=== PATIENT | male | born 1965 | race Caucasian/White ===

== ENCOUNTER 2020-04-18 16:20 | Inpatient (IN) | payer OTHER ==
[~2020-04-18] VITALS: Ht 180.3 cm; Wt 78.5 kg
[2020-04-18 16:26] VITALS: BP 148/94
[2020-04-18 17:44] LABS: ABSOLUTE NEUTROPHILS 6.9 thou/uL (1.4-8.2); BASOPHILS 1.3 % (0.0-2.0); EOSINOPHILS 1.7 % (0.0-3.0); HEMATOCRIT 44.5 % (42.0-52.0); HEMOGLOBIN 15.2 gm/dL (14.0-18.0); LYMPHOCYTES 18.7 % (24.0-44.0); MCHC 34.2 g/dL (28.0-37.0); MCV 84.7 fL (80.0-100.0); MONOCYTES 6.7 % (1.0-8.0); PLATELET COUNT 210 thou/uL (150-400); POLYS 71.6 % (36.0-66.0); RBC 5.25 mil/uL (4.50-6.00); RDW 13.1 % (10.5-14.5); WBC 9.7 thou/uL (4.0-11.0)
[2020-04-18 18:11] LABS: CALCIUM 8.9 mg/dL (8.5-10.1); CREATININE 1.2 mg/dL (0.7-1.3); POTASSIUM 4.1 mmol/L (3.5-5.1)
[2020-04-18 18:17] LABS: ALBUMIN 3.7 g/dL (3.4-5.0); TOTAL PROTEIN 7.8 g/dL (6.4-8.2)
[2020-04-18 20:28] VITALS: BP 150/93
[2020-04-18] MEDS ORDERED: KEFLEX500 M1 PO (20:43)
[2020-04-18 22:17] VITALS: BP 132/89
[2020-04-19] VITALS (9 sets, daily range): BP systolic 147–168; BP diastolic 91–102
--- NOTE | 2020-04-19 04:15 | NUR ---
PATIENT ARRIVED ON UNIT AT 2105 VIA W/C FROM ED ACCOMPANIED BY ED PERSONEL. PATIENT ALERT AND ORIENTED X4. PATIENT NOT A FALL RISK. L FORE FINGER HAS WOUND THAT IS RED AND DISCOLORED WITH A CENTER THAT IS DRAINING SEROUS FLUID. DRESSING CHANGED. C/O PAIN, MED GIVEN. SLEPT MOST OF NIGHT.
[2020-04-19 05:42] LABS: HEMATOCRIT 40.1 % (42.0-52.0); HEMOGLOBIN 13.6 gm/dL (14.0-18.0); MCH 28.8 pg (26.0-34.0); MCHC 33.8 g/dL (28.0-37.0); MCV 85.1 fL (80.0-100.0); RBC 4.72 mil/uL (4.50-6.00); WBC 7.1 thou/uL (4.0-11.0)
[2020-04-19 06:08] LABS: CALCIUM 8.6 mg/dL (8.5-10.1); CREATININE 1.3 mg/dL (0.7-1.3)
--- NOTE | 2020-04-19 11:57 | HC ---
[facility] [place] [address] CONSULTATION Name: JAXSON DOE Room #: 442- ADM IN M.R.#: [id number] Admission: 04/18/20 Attend Phys: Saundra Ang MD Discharge: Date of : 63 Report #: [id number] THIS REPORT FOR: cc: FAM - No family physician/PCP FAM - No family physician/PCP Brian Gardner MD ~ DATE OF SERVICE: 04/19/2020 CHIEF COMPLAINT: Left hand and index finger burn with cellulitis and superficial abscess. HISTORY OF PRESENT ILLNESS: This 54-year-old gentleman injured the left hand at work about 8 days ago. I believe he sustained a burn from a hot plastic material. This occurred on the dorsal radial aspect of the left index finger. Subsequently, he developed cellulitis. He apparently has had oral antibiotics and some outpatient wound care management. Despite this, the redness, warmth, swelling and pain have advanced. He therefore came to [facility] and was admitted for further evaluation. At the time of my evaluation, he is somewhat emotional and seems slightly confused. He denies any other areas of injury aside from the left hand. The left hand demonstrates an area of cellulitis with a central area of burn with subcutaneous fluid and purulent material. The digit seems to be well aligned and there is no evidence of fracture. In general, vascular status appears to be intact. The cellulitis extends from about the PIP joint, back to a point about 1 cm proximal to the MP joint. There is no evidence of flexor tenosynovitis. He has good extensor strength and there is no extension of fluid or swelling or redness out on to the dorsum of the hand. X-rays of the hand reveal no obvious bony abnormalities. There is some soft tissue irregularity, which could be consistent with eschar from his burn. IMPRESSION AND PLAN: I think this is primarily cellulitis, but there is some purulent debris and so probably some subcutaneous abscess along the dorsal radial aspect of the left index finger. He has already had oral antibiotics and topical care over the past week without clear benefit. Given this, I think at least a limited open debridement would be appropriate. Unfortunately, he has already had breakfast this morning. Given this, I am not certain what will be able to manage. He states he probably could tolerate a simple local anesthetic and I think this would be a very limited debridement. Given this, we will see [facility] [address] [place] [address] CONSULTATION Name: JAXSON DOE Room #: 442-P [facility] IN M.R.#: [id number] Admission: 04/18/20 Attend Phys: Saundra Ang MD Discharge: Date of : 63 Report #: [id number] if we get press ahead at some point today with a limited open debridement of the soft tissue abscess involving the left index finger. <ELECTRONICALLY SIGNED> By: Brian Gardner MD 04/19/20 1157 [id number] Brian Gardner MD /darci
--- NOTE | 2020-04-19 12:01 | NUR ---
LEFT AT APPROX 1000 FOR PRE SURGERY.
--- NOTE | 2020-04-19 13:08 | NUR ---
PATIENT BACK FROM SURGERY/ DEBRIDEMENT GIVEN PRN PAIN MED.
--- NOTE | 2020-04-20 05:12 | NUR ---
RECIEVED CARE OF THIS PATIENT AT 1900. PATIENT ALERT AND ORIENTED X4. UP AD JAYLENE. DRESSING ON L HAND INTACT. C/O PAIN X1, MED GIVEN. SLEPT MOST OF NIGHT.
[2020-04-20 05:36] LABS: GLYCOHEMOGLOBIN (HGB A1C) 11.6 % (4.8-5.6)
[2020-04-20 07:17] VITALS: BP 135/83
[2020-04-20 08:52] LABS: ALBUMIN 2.8 g/dL (3.4-5.0); CALCIUM 8.3 mg/dL (8.5-10.1); PHOSPHORUS 2.9 mg/dL (2.6-4.7); POTASSIUM 4.4 mmol/L (3.5-5.1)
--- NOTE | 2020-04-20 10:03 | O ---
[facility] [place] [address] OPERATIVE REPORT Name: JAXSON DOE Room #: 2- ADM IN M.R.#: [id number] Admission: 04/18/20 Attend Phys: Saundra Ang MD Discharge: Date of : 63 Report #: [id number] THIS REPORT FOR: cc: FAM - No family physician/PCP FAM - No family physician/PCP Brian Gardner MD ~ DATE OF SERVICE: 04/19/2020 PREOPERATIVE DIAGNOSES: Cellulitis and abscess, left index finger. POSTOPERATIVE DIAGNOSES: Cellulitis and abscess, left index finger. PROCEDURE: Irrigation and debridement, left index finger abscess. SURGEON: Brian Gardner M.D. INDICATIONS: This 54-year-old gentleman injured the left hand at work 8 days ago. He apparently had a hot plastic burn, which subsequently resulted in cellulitis and then a subcutaneous abscess. He has failed outpatient treatment and was admitted for more aggressive management. I have discussed with the patient that he probably does have some subcutaneous abscess, although there is no evidence of flexor tenosynovitis nor extensive extension into the dorsum of the hand. We have elected to go ahead with simple wound debridement. DESCRIPTION OF PROCEDURE: The patient was taken to the operating room where he was placed under limited IV sedation. The left wrist and hand were meticulously prepped and draped. Local anesthesia was established with injection of 0.25% Marcaine at the base of the index finger. The area of abscess was incised along the dorsal radial aspect. A small amount of purulent debris was evacuated. This was cultured and sent to the lab. The area was gently probed using scissors and a small hemostat. There was a subcutaneous abscess, but was rather limited in size. It did not extend quite back to the MP joint nor out to the PIP joint. It seemed to be superficial and did not seem to extend deep to the extensor tendon. This area was copiously irrigated and then very gently packed with a small amount of Nu Gauze material leaving the wound open for good drainage. A soft dressing was then applied. The patient was then awakened and returned to recovery room in good condition. <ELECTRONICALLY SIGNED> By: Brian Gardner MD 04/20/20 [id number] Brian Gardner MD /nt
[2020-04-20 15:48] VITALS: BP 144/76
[2020-04-20 19:13] VITALS: BP 149/78
--- NOTE | 2020-04-21 04:00 | NUR ---
PT IS PLEASANT AND COOPERATIVE. AFEBRILE. UP AD JAYLENE. VOIDING PER BATHROOM.LEFT HAND, INCLUDING FORE FINGER WRAPPED IN GAUZE.GOOD SENSATION, CIRCULATION AND MOVEMENT NOTED TO THE LEFT HAND. RFA INFLITRATED, HAND SWOLLEN-ELEVATED ON PILLOW-PT DENIES NEED FOR PAIN MEDS.CALL LIGHT WITHIN REACH.
[2020-04-21 04:10] VITALS: BP 161/90
[2020-04-21 07:30] VITALS: BP 136/87
--- NOTE | 2020-04-21 15:33 | NUR ---
PT ADMITTED RELATED TO INFECTION IN [facility]. CM REVIEWED CHART AND SPOKE WITH CARE TEAM. CM MET WITH PT OVER THE PHONE THIS DAY. PT APPEARED TO BE A&0 X4. CM ROLE INTRODUCED. PT INDICATED HE LIVES IN A HOUSE WITH HIS SPOUSE WITH A NUMBER OF STEPS TO ENTER AND INSIDE. PT INDICATED HE HAD BEEN INDEPDENENT WITH GAIT AND ADLS RN ADMISSIONS. PT INDICATED NO PCP. PT INDICATED HE PLANS TO RETURN HOME ONCE MEDICALLY STABLE. PT IS LISTED WORKMANS COMP. PT EXPRESSED THAT HE IS TO FOLLOW UP WITH PHYSICAIN THROUGH HIS EMPLOYER. CM TO FOLLOW INDICATED WITH DC PLANNING.PT HAD I&D 04/19 AND IS ON IV VANC AND ZOSYN.
[2020-04-21 17:00] VITALS: BP 121/92
[2020-04-21 18:56] VITALS: BP 145/82
--- NOTE | 2020-04-22 02:10 | NUR ---
ASSESSMENT COMPLETED. PT IS PLEASANT AND COOPERATIVE. DRSG INTACT TO LEFT FOREFINGER. PT DENIES ANY PAIN. PT JUST CONCERNED MORE ABOUT THE NEW DIABETES DIAGNOSIS.NEEDS ALOT OF EDUACTION. HE IS UP AD JAYLENE. AFEBRILE. VOIDING OK. CONTINUES ON IV FLUIDS AND ABTS.CALL LIGHT WITHIN REACH.
[2020-04-22 07:10] VITALS: BP 142/86
--- NOTE | 2020-04-22 08:07 | HC ---
[facility] [place] [address] CONSULTATION Name: DOEJAXSON Room #: 442- ADM IN M.R.#: [id number] Admission: 04/18/20 Attend Phys: Pablo Bai MD Discharge: Date of : 63 Report #: [id number] THIS REPORT FOR: cc: FAM - No family physician/PCP FAM - No family physician/PCP Iraj Najera MD ~ DATE OF SERVICE: 04/20/2020 WOUND CARE CONSULTATION NOTE REASON FOR CONSULTATION: Infected burn wound of left hand. HISTORY OF PRESENT ILLNESS: The patient is a 54-year-old gentleman who sustained a burn to his left hand with hot plastics at [employer] approximately 10 days ago. Area became more red, tender and swollen. He was admitted to the hospital with antibiotics. He was taken to the operating room yesterday by Dr. Brian Gardner, who incised and drained a soft tissue infection or abscess of the dorsum of the left hand at the metacarpophalangeal joint dorsally. Dr. Gardner states he wished the dressings removed and the packing removed today. The patient continues on IV antibiotics under the direction of Dr. Kvng Frias with IV piperacillin. The patient was noted to be hyperglycemic on admission and has clinically diabetic, now on metformin and insulin. Wound care is consulted to care for the hand wound. PAST MEDICAL HISTORY: Kidney stones, now diabetes. SOCIAL HISTORY: Denies alcohol or tobacco use. ALLERGIES: None. PHYSICAL EXAMINATION: GENERAL: Shows a well-appearing 54-year-old gentleman who appears younger than his stated age. VITAL SIGNS: Temperature 36.7, heart rate 71, blood pressure 135/83. HEENT: Mucous membranes moist. NECK: Supple. LUNGS: Respirations unlabored. EXTREMITIES: Reveals dressing on the left hand; bulky left hand dressing is removed. The patient has redness and swelling of the dorsum of his second digit at the metatarsophalangeal joint. There is a 5 x 5 mm incision and drainage site. An 8 inch long packing of quarter inch gauze is removed from this open wound. There is no draining purulence. Surrounding skin is red with some desquamation, swelling and redness indicative of cellulitis. Wound was redressed with Aquacel Ag and a bulky gauze dressing. Dr. Gardner does not want the wound repacked. [address] [address] CONSULTATION Name: DOEJAXSON Room #: 442-P [facility] IN M.R.#: [id number] Admission: 04/18/20 Attend Phys: Pablo Bai MD Discharge: Date of : 63 Report #: [id number] IMPRESSION: Infected burn wound, dorsum of left hand at the second finger metatarsophalangeal joint, postoperative day #1, incision and drainage; area still has significant erythema. Clinically, there is infection at the burn site. PLAN: The patient will continue on IV antibiotics, keep hand elevated. Wound care team will follow. Diabetes management. <ELECTRONICALLY SIGNED> By: Iraj Najera MD 04/22/20 [id number] Iraj Najera MD /nt
[2020-04-22] MEDS ORDERED: LANTUS SUBQ (13:34)
[2020-04-22] MEDS ORDERED: GLUCOPHAGE1000 MG PO (13:34)
[2020-04-22] MEDS ORDERED: TEST STRIPS1 EACH SUBQ (13:36)
[2020-04-22] MEDS ORDERED: FREESTYLE LANC1 EACH MISCELL (13:37)
[2020-04-22] MEDS ORDERED: KEFLEX500 M1 PO (13:38)
--- NOTE | 2020-04-22 14:52 | NUR ---
A/O, calm and coopetative. Patient got DM education fold, asked questions about how to check blood sugar, where to get the needles and how to figure out how many units of insulin he should get. The staff educated the patient about the hyperglycemia and hypoglycemia, the signs and sympotoms, the complication, the situations that might cause hypoglycemia or hyperglycemia. Patient agreed to study about DM and DM care from the website online, and agreed to call the hospital for help whenever he has questions.
== END 2020-04-22 14:50 | disposition home or self-care (01) | DRG 935 ==
LOC: ER 16:20 → 4S 19:49 → EROBS 19:49 → 4S 20:59
PROVIDERS: Nurse Practitioner Family; Physician Assistant; ADMIT Internal Medicine; ATTEND Internal Medicine
PROC: 0J9K0ZZ Drainage of Left Hand Subcutaneous Tissue and Fascia, Open Approach (ICD-10-PCS; principal; 2020-04-19)
DX: T23.222A Burn of second degree of single left finger (nail) except thumb, initial encounter (principal); E44.0 Moderate protein-calorie malnutrition; L02.512 Cutaneous abscess of left hand; L03.012 Cellulitis of left finger; X19.XXXA Contact with other heat and hot substances, initial encounter; I10 Essential (primary) hypertension; E11.65 Type 2 diabetes mellitus with hyperglycemia; L98.499 Non-pressure chronic ulcer of skin of other sites with unspecified severity; Z20.822 Contact with and (suspected) exposure to COVID-19; Z23 Encounter for immunization; Y93.89 Activity, other specified; Y92.89 Other specified places as the place of occurrence of the external cause; Y99.8 Other external cause status; Z87.442 Personal history of urinary calculi; Z68.24 Body mass index [BMI] 24.0-24.9, adult
CPT/HCPCS: 10195; 50101; 50386; 57091; 62110; 62850; 70005